=== PATIENT | male | born 1955 | race Caucasian/White ===

== ENCOUNTER → 2017-04-13 | Outpatient (CLI) | payer OTHER ==
[~2017-04-13] MED LIST: AMLODIPINE BESYL5 MG PO; AMOX TR-K CLV1 EAC4 PO; AMOXICILLIN875 MG PO; Aspirin E.C. PO; BENAZEPRIL HCL40 MG PO; ENDOCET 5-3251 EACH PO; LOPRESSOR50 MG PO; METOPROLOL TART50 MG PO; NORVASC5 MG PO; VITAMIN D31000 UNI2 PO
== END | disposition home or self-care (01) ==
LOC: NUC 10:59
DX: M47.896 Other spondylosis, lumbar region (principal); M95.4 Acquired deformity of chest and rib; R93.7 Abnormal findings on diagnostic imaging of other parts of musculoskeletal system; M47.816 Spondylosis without myelopathy or radiculopathy, lumbar region; M54.16 Radiculopathy, lumbar region; M48.061 Spinal stenosis, lumbar region without neurogenic claudication
CPT/HCPCS: 78315; A9503